=== PATIENT | male | born 1995 | race Caucasian/White ===

== ENCOUNTER 2018-07-22 10:33 | Emergency (ER) | payer MEDICAID ==
[~2018-07-22] VITALS: Ht 175.3 cm; Wt 86.2 kg
[2018-07-22 10:34] VITALS: BP 132/87; Ht 175.3 cm; Wt 86.2 kg
== END 2018-07-22 12:43 | disposition home or self-care (01) ==
LOC: ED 10:33
DX: L50.9 Urticaria, unspecified (principal)

== ENCOUNTER 2018-07-25 18:42 | Emergency (ER) | payer MEDICAID ==
[2018-07-25 19:54] VITALS: BP 120/88
== END 2018-07-25 19:54 | disposition home or self-care (01) ==
LOC: ED 18:42
DX: L50.9 Urticaria, unspecified (principal)
CPT/HCPCS: J7512

== ENCOUNTER 2019-01-12 18:40 | Emergency (ER) | payer MEDICAID ==
[~2019-01-12] VITALS: Ht 172.7 cm; Wt 84.8 kg
[2019-01-12 18:52] VITALS: Ht 172.7 cm; Wt 84.8 kg
[2019-01-12 20:21] VITALS: BP 133/71
== END 2019-01-12 20:21 | disposition home or self-care (01) ==
LOC: ED 18:40
DX: S41.152A Open bite of left upper arm, initial encounter (principal); W50.3XXA Accidental bite by another person, initial encounter; Y93.89 Activity, other specified; Y92.89 Other specified places as the place of occurrence of the external cause; Y99.8 Other external cause status
CPT/HCPCS: 90715

== ENCOUNTER 2019-02-01 22:21 | Emergency (ER) | payer MEDICAID ==
[~2019-02-01] VITALS: Ht 172.7 cm; Wt 84.8 kg
[2019-02-01 22:31] VITALS: Ht 172.7 cm; Wt 84.8 kg
[2019-02-02 00:10] LABS: CALCIUM 9.3 mg/dL (8.5-10.1); CARBON DIOXIDE 28.2 mmol/L (21-32); CHLORIDE SERUM 102 mmol/L (98-107); CREATININE SERUM 0.9 mg/dL (0.7-1.3); GFR1 > 60 mL/min; GLUCOSE SERUM 104 mg/dL (74-106); POTASSIUM SERUM 4.3 mmol/L (3.5-5.1); SODIUM SERUM 141 mmol/L (136-145)
[2019-02-02 00:14] LABS: ALBUMIN 4.8 g/dL (3.4-5.0); ALKALINE PHOSPHATASE 101 U/L (46-116); ALT/SGPT 22 U/L (16-63); AST/SGOT 17 U/L (15-37); BILIRUBIN TOTAL 0.5 mg/dL (0.20-1.00); MAGNESIUM 1.9 mg/dL (1.8-2.4); TOTAL PROTEIN, SERUM 9.1 g/dL (6.4-8.2)
[2019-02-02 00:49] VITALS: BP 113/73
== END 2019-02-02 00:49 | disposition home or self-care (01) ==
LOC: ED 22:21
PROVIDERS: Emergency Medicine
DX: R42 Dizziness and giddiness (principal); R51 Headache
CPT/HCPCS: J1885; J7030; J8597

== ENCOUNTER 2019-09-02 20:42 | Emergency (ER) | payer MEDICAID ==
[~2019-09-02] VITALS: Ht 175.3 cm; Wt 86.2 kg
[2019-09-02 20:52] VITALS: Ht 175.3 cm; Wt 86.2 kg
[2019-09-02 21:30] VITALS: BP 138/84
== END 2019-09-02 21:28 | disposition home or self-care (01) ==
LOC: ED 20:42
DX: U07.1 COVID-19 (principal); B34.9 Viral infection, unspecified; R03.0 Elevated blood-pressure reading, without diagnosis of hypertension
CPT/HCPCS: 87804; U0003-CS

== ENCOUNTER 2020-02-01 15:36 | Emergency (ER) | payer OTHER ==
[~2020-02-01] VITALS: Ht 175.3 cm; Wt 86.2 kg
[2020-02-01 17:13] LABS: PLATELET COUNT 206 x10^3mcL (130-400); RED CELL DISTRIBUTION WIDTH 12.2 % (11.5-14.5)
[2020-02-01 17:21] LABS: CALCIUM 9.5 mg/dL (8.5-10.1); CARBON DIOXIDE 24.2 mmol/L (21-32); CHLORIDE SERUM 104 mmol/L (98-107); CREATININE SERUM 1.1 mg/dL (0.7-1.3); GFR1 > 60 mL/min; GLUCOSE SERUM 93 mg/dL (74-106); POTASSIUM SERUM 3.9 mmol/L (3.5-5.1); SODIUM SERUM 145 mmol/L (136-145)
[2020-02-01 17:25] LABS: ALKALINE PHOSPHATASE 102 U/L (46-116); ALT/SGPT 37 U/L (16-63); AST/SGOT 23 U/L (15-37); BASOPHIL % 0 % (0-2); BILIRUBIN TOTAL 0.6 mg/dL (0.20-1.00); LIPASE 92 IU/L (73-393)
[2020-02-01 17:26] LABS: ALBUMIN 5.1 g/dL (3.4-5.0); TOTAL PROTEIN, SERUM 9.2 g/dL (6.4-8.2)
[2020-02-01 19:04] LABS: microscopic required? NO
[2020-02-01 19:15] LABS: UA SPECIFIC GRAVITY 1.015 (1.005-1.035); urine erythrocyte NEGATIVE (NEGATIVE)
[2020-02-01 20:11] VITALS: BP 119/69
== END 2020-02-01 20:02 | disposition home or self-care (01) ==
LOC: ED 15:36
PROVIDERS: Student in an Organized Health Care Education/Training Program
DX: R10.13 Epigastric pain (principal); R11.2 Nausea with vomiting, unspecified
CPT/HCPCS: J2405; J7030; Q0092; Q9967

== ENCOUNTER 2020-05-20 20:51 | Emergency (ER) | payer OTHER ==
[~2020-05-20] VITALS: Ht 175.3 cm; Wt 89.1 kg
[2020-05-20 20:59] VITALS: Ht 175.3 cm; Wt 89.1 kg
[2020-05-20] MEDS ORDERED: IBU600 M2 PO (21:32)
[2020-05-20 21:45] VITALS: BP 125/83
== END 2020-05-20 21:45 | disposition home or self-care (01) ==
LOC: ED 20:51
DX: M54.2 Cervicalgia (principal); R07.89 Other chest pain